=== PATIENT | female | born 1970 | race Caucasian/White ===

== ENCOUNTER 2019-08-23 14:29 | Emergency (ER) | payer OTHER ==
[2019-08-23 14:40] VITALS: PULSE 94; TEMP 98.2; BMI 41.0
[2019-08-23] MEDS ORDERED: MECLIZINE HCL 25 MG TABLET (FP) PO ONE (15:02)
[2019-08-23] MEDS ORDERED: ONDANSETRON *ODT* 4 MG TABLET SL ONE (15:02)
[2019-08-23] MEDS ORDERED: MECLIZINE HCL 25 MG TABLET (FP) ONE (15:10)
[2019-08-23] MEDS ORDERED: ONDANSETRON *ODT* 4 MG TABLET ONE (15:11)
--- NOTE | 2019-08-23 15:48 | PDOC ---
History of Present Illness - General Chief Complaint: Lightheaded Stated Complaint: vertigo Time Seen by Provider: 08/23/19 14:33 - History of Present Illness Initial Comments: 08/23/19 15:43 49yo female presents for eval of ringing in the L ear and vertiginous symptoms. States symptoms x 3 days. States she had a URI last week and then developed the vertiginous symptoms 3 days ago. States she was dx with vertigo 8 years ago in [place] and started on meclizine at that time. States she develops vertiginous symptoms q3m. Pt states she has been taking meclizine qam x 3 days without improvement. Pt denies sinus or facial pain. No f/c. No enamorado. C/o nausea and dizziness. States the room is spinning. Pt denies cp/sob. No abd pain. No n/v/ d. No dysuria. 08/23/19 15:53 Pmhx: vertigo, gerd all: nkda 08/23/19 15:54 Past History - Past Medical History Allergies/Adverse Reactions: Allergies Allergy/AdvReac Type Severity Reaction Status Date / Time No Known Allergies Allergy Verified 08/23/19 14:31 Home Medications: Ambulatory Orders Alprazolam [Xanax] 0.5 mg PO BID #10 tablet 06/18/15 Lisinopril/Hydrochlorothiazide [Lisinopril-Hctz 10-12.5 mg Tab] 1 each PO DAILY 08/23/19 Meclizine HCl 12.5 mg PO ASDIR PRN 08/23/19 Meclizine HCl 25 mg PO TID PRN #9 tablet 08/23/19 Ondansetron [Zofran *Odt*] 4 mg SL TID PRN #9 od.tablet 08/23/19 COPD: No GI Disorders: Yes (GERD) HTN: Yes Hypercholesterolemia: Yes Other medical history: vertigo - Surgical History Abdominal Surgery: (hernia) - Immunization History Immunization Up to Date: No - Psycho Social/Smoking Cessation Hx Smoking Status: No Smoking History: Current every day smoker Have you smoked in the past 12 months: Yes Number of Cigarettes Smoked Daily: 20 Information on smoking cessation initiated: Yes Hx Alcohol Use: No Drug/Substance Use Hx: No Review of Systems - Review of Systems Able to Perform ROS?: Yes Is the patient limited Occitan proficient: No Constitutional: No: Chills, Fever HEENTM: No: Blurred Vision, Double Vision, Nose Congestion, Throat Swelling Respiratory: No: Cough, Shortness of Breath Cardiac (ROS): Yes: Lightheadedness. No: Chest Pain ABD/GI: Yes: Nausea. No: Diarrhea, Vomiting, Abdominal cramping : No: Burning, Dysuria Musculoskeletal: No: Back Pain Integumentary: No: Bruising, Rash Neurological: Yes: Dizziness. No: Headache, Numbness, Paresthesia, Tingling, Weakness, Ataxia All Other Systems: Reviewed and Negative *Physical Exam - Vital Signs Last Vital Signs Temp Pulse Resp BP Pulse Ox 98.2 F 94 H 20 121/73 97 08/23/19 14:30 08/23/19 14:30 08/23/19 14:30 08/23/19 14:30 08/23/19 14:30 - Physical Exam General Appearance: Yes: Nourished, Appropriately Dressed, Apparent Distress, Other (appears uncomfortable, dizzy with change in position) HEENT: positive: EOMI, [place], Normal Voice, TMs Normal, Pharynx Normal Neck: positive: Supple Respiratory/Chest: positive: Lungs Clear, Normal Breath Sounds. negative: Respiratory Distress Cardiovascular: positive: Regular Rhythm, Regular Rate, S1, S2. negative: Edema Gastrointestinal/Abdominal: positive: Soft. negative: Guarding, Rebound, Tenderness Musculoskeletal: positive: Normal Inspection Extremity: positive: Normal Capillary Refill, Normal Inspection, Normal Range of Motion. negative: Swelling Integumentary: positive: Normal Color, Dry, Warm Neurologic: positive: assistant center director II-XII NML intact, Fully Oriented, Alert, Normal Mood/ Affect, Normal Response, Motor Strength 5/5 Heart Score/ECG Review - ECG Intrepretation Comment:: 08/23/19 16:26 sinus at 74, nl axis, nl interval, incomplete rbbb, no acute st/t wave findings ED Treatment Course - LABORATORY CBC & Chemistry Diagram: 08/23/19 16:24 08/23/19 16:24 - Medications Given in the ED: ED Medications Discontinued Medications Generic Name Dose Route Start Last Admin Trade Name Freq PRN Reason Stop Dose Admin Meclizine HCl 25 mg 08/23/19 15:02 08/23/19 15:12 Antivert - PO 08/23/19 15:03 25 mg ONCE ONE Administration Ondansetron HCl 4 mg 08/23/19 15:02 08/23/19 15:12 Zofran Odt - SL 08/23/19 15:03 4 mg ONCE ONE Administration Medical Decision Making - Medical Decision Making 08/23/19 15:57 a/p: 49yo female with 8 year hx of vertigo with dizziness x 3 days -will give zofran odt and meclizine -orthostatic vs neg (supine 132/81, sitting 142/86, standing 138/82) -neuro intact -has not seen ENT in 8 years since being in [place] -will need ENT eval, ringing in the ears, poss menieres disease -will monitor and reassess 08/23/19 16:13 pt vomiting and feeling more dizzy will send labs, ekg, head ct will give reglan, ivf hydration, tylenol iv 08/23/19 16:[address] without acute findings per IOC. pt updated state she is starting to feel better 08/23/19 17:16 pt feeling much better ambulatory with a steady gait no longer dizzy discussed labs and imaging with the family and the patient pt will need ent and neurology follow up stable for dc to home Discharge - Discharge Information Problems reviewed: Yes Clinical Impression/Diagnosis: Vertigo Condition: Stable Disposition: HOME - Admission No - Additional Discharge Information Prescriptions: Meclizine HCl 25 mg PO TID PRN #9 tablet PRN Reason: Vertigo Ondansetron [Zofran *Odt*] 4 mg SL TID PRN #9 od.tablet PRN Reason: Nausea - Follow up/Referral Referrals: Zain Campo MD [Staff Physician] - Reyes Silverman MD [Staff Physician] - - Patient Discharge Instructions Patient Printed Discharge Instructions: DI for Meniere's Disease, DI for Vertigo Additional Instructions: Please take all medications as prescribed. Please take the meclizine at the onset of the dizziness. Please take it every 8 hours as needed for dizziness, but do not take the meclizine when you are not feeling dizzy. Please put the zofran under your tongue when you are feeling nauseated. Please make an appointment to see the ENT and the neurologist this week. Please make an appointment to see your PMD. Please return to the ER with any further concerns or complaints. - Post Discharge Activity
[2019-08-23] MEDS ORDERED: SODIUM CHLORIDE 0.9% 1000 ML INFUS.BAG IV ONE (15:49)
[2019-08-23] MEDS ORDERED: METOCLOPRAMIDE HCL INJECTION 10 MG/2 ML VIAL IVPUSH ONE (15:49)
[2019-08-23] MEDS ORDERED: ACETAMINOPHEN 1000 MG/100 ML VIAL (NON FORMULARY) IVPB ONE (15:49)
[2019-08-23] MEDS ORDERED: ACETAMINOPHEN INJECTION 100 ML IVPB ONE (16:27)
[2019-08-23] MEDS ORDERED: METOCLOPRAMIDE HCL INJECTION 10 MG/2 ML VIAL ONE (16:28)
[2019-08-23 16:41] LABS: BASO % 0.9 % (0-2.0); EOS % 3.7 % (0-4.5); HEMATOCRIT 37.5 % (32.4-45.2); HEMOGLOBIN 12.1 GM/dl (10.7-15.3); MCH 24.2 pg (25.7-33.7); MCHC 32.2 g/dl (32.0-36.0); MEAN CELL VOLUME 75.1 fl (80-96); MEAN PLT VOLUME 8.7 fl (7.5-11.1); MONO % 8.4 % (3.8-10.2); PLATELET COUNT 445 K/MM3 (134-434); RDW 14.2 % (11.6-15.6); WHITE BLOOD COUNT 10.8 K/mm3 (4.0-10.8)
[2019-08-23 16:48] LABS: EPITHELIAL CELLS RARE /hpf
[2019-08-23 16:56] LABS: ALBUMIN 3.9 g/dl (3.4-5.0); BILIRUBIN,TOTAL 0.7 mg/dl (0.2-1); CALCIUM 9.2 mg/dl (8.5-10); CREATININE 0.7 mg/dl (0.55-1.3); POTASSIUM 3.7 mmol/L (3.5-5.1); TOT PROT 7.1 g/dl (6.4-8.2)
[2019-08-23 17:38] VITALS: BP 132/81
--- NOTE | 2019-08-24 14:42 | EKG ---
Test Reason : Blood Pressure : / mmHG Vent. Rate : 074 BPM Atrial Rate : 074 BPM P-R Int : 188 ms QRS Dur : 096 ms QT Int : 418 ms P-R-T Axes : 027 023 025 degrees QTc Int : 463 ms NORMAL SINUS RHYTHM LEFT ATRIAL ENLARGEMENT INCOMPLETE RIGHT BUNDLE BRANCH BLOCK CANNOT RULE OUT INFERIOR INFARCT ABNORMAL ECG Confirmed by MD BERTA, TU ([id number]) on 08/24/2019 2:42:41 PM Referred By: CAROLINE KUMAR Confirmed By:TU HAMPTON MD
== END 2019-08-23 17:38 | disposition home or self-care (01) ==
LOC: FER 14:29
PROC: 3E033NZ Introduction of Analgesics, Hypnotics, Sedatives into Peripheral Vein, Percutaneous Approach (ICD-10-PCS; principal; 2019-08-23)
PROC: 3E033GC Introduction of Other Therapeutic Substance into Peripheral Vein, Percutaneous Approach (ICD-10-PCS; 2019-08-23)
DX: R42 Dizziness and giddiness (principal); K21.9 Gastro-esophageal reflux disease without esophagitis; E78.00 Pure hypercholesterolemia, unspecified; I10 Essential (primary) hypertension; F17.210 Nicotine dependence, cigarettes, uncomplicated
CPT/HCPCS: 36415; 70450-TC; 80053; 81003; 81015; 82550; 84484; 84703; 85025; 93005; 99284-25; J0131; J7030; Q0162

== ENCOUNTER 2020-01-22 12:30 | Emergency (ER) | payer OTHER ==
[2020-01-22 12:42] VITALS: TEMP 98.6; BMI 36.3
[2020-01-22] MEDS ORDERED: ASPIRIN 81 MG CHEWABLE TABLETS PO ONE (12:58)
[2020-01-22] MEDS ORDERED: SODIUM CHLORIDE 1,000 ML IV ONE (12:58)
[2020-01-22] MEDS ORDERED: ASPIRIN 81 MG CHEWABLE TABLETS ONE (13:03)
--- NOTE | 2020-01-22 13:17 | PDOC ---
History of Present Illness - General Chief Complaint: Chest Pain Stated Complaint: CHEST TIGHTNESS, NUMBNESS TO BOTH LEGS Time Seen by Provider: 01/22/20 12:33 History Source: Patient Exam Limitations: No Limitations - History of Present Illness Initial Comments: 01/22/20 13:12 49yF hx of hx of dm, htn, hl, hypothyroidism presenst with complaint of chest pain. Pt states she has had intermittent episodes of chest pressure lasting a few seconds, when she wakes up, sometimes during the day. Patient states she feels it approximately twice a day, she endorses some shortness of breath, sometimes she feels numbness and tingling down her left and right arms. Patient states she has not had similar symptoms prior. She denies any associated nausea or vomiting, Diaphoresis, abdominal pain, back pain, lower extremity swelling, Dysuria, diarrhea, blood per rectum, melena. Patient notes that the pain occurs both at rest as well as with exertion. Patient states that her last episode of chest discomfort was last night. Patient states that she started taking aspirin in the last 4 days. Patient last saw a manager rn 6 years ago for a stress test. Patient states she has felt like she was under a lot of stress the last month or so. Social history, chronic smoker, Denies any recreational drug use Family history mother had CAD Past History - Medical History Allergies/Adverse Reactions: Allergies Allergy/AdvReac Type Severity Reaction Status Date / Time No Known Allergies Allergy Verified 08/23/19 14:31 Home Medications: Ambulatory Orders Lisinopril/Hydrochlorothiazide [Lisinopril-Hctz 10-12.5 mg Tab] 1 each PO DAILY 08/23/19 Meclizine HCl 12.5 mg PO ASDIR PRN 08/23/19 Aspirin 81 mg PO DAILY 01/22/20 Topiramate [Topamax] 50 mg PO BID 01/22/20 metFORMIN HCL [Metformin HCl] 500 mg PO DAILY 01/22/20 COPD: No GI Disorders: Yes (GERD) HTN: Yes Hypercholesterolemia: Yes Other medical history: MIGRAINES - Surgical History Abdominal Surgery: (hernia) - Immunization History Immunization Up to Date: No - Psycho-Social/Smoking History Smoking Status: No Smoking History: Current every day smoker Have you smoked in the past 12 months: Yes Number of Cigarettes Smoked Daily: 20 Information on smoking cessation initiated: Yes 'Breaking Loose' booklet given: 08/23/19 - Substance Abuse Hx (Audit-C & DAST Scrn) How often the patient has a drink containing alcohol: Never Score: In Men: 4 or > Positive; In Women: 3 or > Positive: 0 Screen Result (Pos requires Nsg. Audit-10AR): Negative In the last yr the pt used illegal drug/Rx for NonMed reason: No Score: Yes response is considered Positive: 0 Screen Result (Positive result requires Nsg. DAST-10): Negative Review of Systems - Review of Systems Able to Perform ROS?: Yes Comments:: 01/22/20 13:15 Constitutional - no reported Fever, Chills, HEENT: no reported vision changes, sore throat Respiratory: +sob no reported cough, sob, hemoptysis Cardiac: + chest pain, no reported palpitations, light headedness, leg swelling Abd/GI: no reported abd pain, nausea, vomiting, blood per rectum, melena, diarrhea : no reported dysuria, frequency, discharge Musculskelatal - no reported back pain, joint swelling skin - no reported bruising, erythema, rash neurological: no reported headache, numbness, focal weakness, tingling, ataxia, hematologic: no reported easy bruising, easy bleeding *Physical Exam - Vital Signs Last Vital Signs Temp Pulse Resp BP Pulse Ox 98.6 F 86 18 100/55 L 100 01/22/20 12:30 01/22/20 12:30 01/22/20 12:30 01/22/20 12:30 01/22/20 12:30 - Physical Exam 01/22/20 13:16 GENERAL: The patient is awake, alert, and fully oriented, Nontoxic - in no acute distress. HEAD: Normocephalic, atraumatic. EYES: extraocular movements intact, sclera anicteric, conjunctiva clear. ENT: Normal voice, Moist mucous membranes. NECK: Normal range of motion, supple LUNGS: Breath sounds equal, clear to auscultation bilaterally. No wheezes, no rhonchi, no rales. HEART: Regular rate and rhythm, normal S1 and S2 without murmur, rub or gallop. ABDOMEN: Soft, nontender, No guarding, no rebound. No CVA tenderness EXTREMITIES: Normal range of motion, no edema. NEUROLOGICAL: No facial assymetry, Normal speech, PSYCH: Normal mood, normal affect. SKIN: Warm, Dry, normal turgor, Heart Score/ECG Review - History History: Slightly suspicious - Electrocardiogram EKG: Normal - Age Age: 45-65 - Risk Factors Risk Factors Heart Score: Yes Hx Hypercholesterolemia, Yes Hx Hypertension, Yes Smoking History Based on the list above the patient has:: >/=3 risk factors or Hx atherosclerotic disease - Troponin Troponin: </= normal limit - Score Heart Score - Total: 3 - ECG Impressions Comment:: 01/22/20 13:16 Twelve-lead EKG was performed and reviewed by me. There is normal sinus rhythm with a normal rate. rat of 79 The axis is normal. The intervals are normal. There is normal R wave progression There are no ST or T wave abnormalities. Impression: Normal twelve-lead EKG ED Treatment Course - LABORATORY CBC & Chemistry Diagram: 01/22/20 13:05 01/22/20 13:05 - ADDITIONAL ORDERS Additional order review: Laboratory Results 01/22/20 01/22/20 01/22/20 13:05 13:05 13:01 Sodium 133 L Potassium 4.1 Chloride 104 Carbon Dioxide 23 Anion Gap 6 L BUN 20.0 H Creatinine 0.9 Est GFR (CKD-EPI)AfAm 87.63 Est GFR (CKD-EPI)NonAf 75.61 Random Glucose 88 Calcium 8.6 Total Bilirubin 0.9 AST 14 L ALT 18 Alkaline Phosphatase 62 Creatine Kinase 107 Troponin I < 0.03 Total Protein 7.2 Albumin 4.0 Serum , Qual Negative 01/22/20 13:05 RBC 4.98 MCV 72.4 L MCHC 31.9 L RDW 16.6 H MPV 9.4 Neutrophils % 51.6 Lymphocytes % 35.6 D Monocytes % 8.7 Eosinophils % 3.1 Basophils % 1.0 - Medications Given in the ED: ED Medications Discontinued Medications Generic Name Dose Route Start Last Admin Trade Name Freq PRN Reason Stop Dose Admin Aspirin 162 mg 01/22/20 12:58 01/22/20 13:05 Asa - PO 01/22/20 12:59 162 mg ONCE ONE Administration Sodium Chloride 1,000 mls @ 1,000 mls/hr 01/22/20 12:58 01/22/20 13:00 Normal Saline - IV 01/22/20 13:57 1,000 mls/hr .Q1H ONE Administration Medical Decision Making - Medical Decision Making 01/22/20 13:18 ddx - acs, consider possible anxiety currently pain free will ck ekg, will obtain blood work including troponin (last episode of cp last night) asa 01/22/20 14:45 pts blood work reviewd trop negative pt feeling improved anticipate dc with pmd and cards fu return precautions were discussed Discharge - Discharge Information Problems reviewed: Yes Clinical Impression/Diagnosis: Chest pain Qualifiers: Chest pain type: unspecified Qualified Code(s): R07.9 - Chest pain, unspecified Condition: Stable Disposition: HOME - Follow up/Referral Referrals: Brody Moyer MD [Staff Physician] - Kiet Morse MD [Staff Physician] - Rudy Alfred MD [Staff Physician] - Perez Barron MD [Staff Physician] - - Patient Discharge Instructions Patient Printed Discharge Instructions: DI for Atypical Chest Pain Additional Instructions: Return to the emergency department immediately with ANY new, persistent or worsening symptoms Including any chest pain, shortness of breath or any other concerns You MUST call and follow up with your doctor and a manager rn within 3 days for further evaluation of your symptoms. Results were discussed with you. Please make sure your doctor reviews the results of your emergency evaluation. Your Emergency Department visit is not complete without a follow up with your doctor. Print Language: GUATEMALAN - Post Discharge Activity
[2020-01-22 13:27] LABS: BILIRUBIN,TOTAL 0.9 mg/dl (0.2-1); CALCIUM 8.6 mg/dl (8.5-10); CREATININE 0.9 mg/dl (0.55-1.3); POTASSIUM 4.1 mmol/L (3.5-5.1); TOT PROT 7.2 g/dl (6.4-8.2)
--- NOTE | 2020-01-22 14:08 | EKG ---
Test Reason : Blood Pressure : / mmHG Vent. Rate : 079 BPM Atrial Rate : 079 BPM P-R Int : 168 ms QRS Dur : 090 ms QT Int : 376 ms P-R-T Axes : 052 032 047 degrees QTc Int : 431 ms NORMAL SINUS RHYTHM NORMAL ECG WHEN COMPARED WITH ECG OF 23-AUG-2019 16:00, NO SIGNIFICANT CHANGE WAS FOUND Confirmed by LIVE MUNIZ MD ([id number]) on 01/22/2020 2:07:26 PM Referred By: DR FOSTER Confirmed By:LIVE MUNIZ MD
[2020-01-22 14:39] LABS: EOS % 3.1 % (0-4.5); HEMOGLOBIN 11.5 GM/dL (10.7-15.3); LYMPH % 35.6 % (8-40); MCH 23.1 pg (25.7-33.7); MCHC 31.9 g/dl (32.0-36.0); MEAN CELL VOLUME 72.4 fl (80-96); MEAN PLT VOLUME 9.4 fl (7.5-11.1); MONO % 8.7 % (3.8-10.2); NEUT % 51.6 % (42.8-82.8); PLATELET COUNT 365 K/MM3 (134-434); RBC 4.98 M/mm3 (3.60-5.2); RDW 16.6 % (11.6-15.6); WHITE BLOOD COUNT 8.6 K/mm3 (4.0-10.0)
[2020-01-22 15:21] VITALS: BP 111/68; PULSE 75
== END 2020-01-22 15:00 | disposition home or self-care (01) ==
LOC: FER 12:30
PROC: 3E0337Z Introduction of Electrolytic and Water Balance Substance into Peripheral Vein, Percutaneous Approach (ICD-10-PCS; principal; 2020-01-22)
DX: R07.9 Chest pain, unspecified (principal)
CPT/HCPCS: 36415; 80053; 82550; 84484; 84703; 85025; 93005; 99284-25

== ENCOUNTER 2021-02-09 15:48 | Emergency (ER) | payer OTHER ==
[2021-02-09 16:09] VITALS: BP 135/77; PULSE 110; TEMP 99.2; BMI 34.3
== END 2021-02-09 18:04 | disposition home or self-care (01) ==
LOC: FER 15:48
DX: S20.219A Contusion of unspecified front wall of thorax, initial encounter (principal)
CPT/HCPCS: 72050-TC-FY; 99283-25

== ENCOUNTER 2022-05-02 03:25 | Inpatient (IN) | payer OTHER ==
[2022-05-02] MEDS ORDERED: ACETAMINOPHEN INJECTION 100 ML IVPB ONE (05:05)
[2022-05-02] MEDS ORDERED: SODIUM CHLORIDE 1,000 ML IV STA (05:05)
[2022-05-02] MEDS ORDERED: ACETAMINOPHEN 1000 MG/100 ML BAG IVPB ONE (05:05)
[2022-05-02 05:43] LABS: BASO % 1.1 % (0-2.0); EOS % 1.3 % (0-4.5); HEMATOCRIT 34.6 % (32.4-45.2); HEMOGLOBIN 10.7 GM/dL (10.7-15.3); LYMPH % 17.6 % (8-40); MCHC 30.9 g/dl (32.0-36.0); PLATELET COUNT 408 10^3/uL (134-434); RBC 5.49 M/mm3 (3.60-5.2); RDW 19.9 % (11.6-15.6); WHITE BLOOD COUNT 11.9 K/mm3 (4.0-10.0)
[2022-05-02 05:56] LABS: MCH 19.4 pg (25.7-33.7)
[2022-05-02 06:01] LABS: EPI CELLS >36 /uL (0-25.1); HYALINE CASTS 4 /uL (0-3.1); PH,URINE 5.5 (5.0-8.0); URINE APPEARANCE CLOUDY; URINE BACTERIA 6 /uL (0-1359); URINE BILIRUBIN NEGATIVE (NEGATIVE); URINE COLOR RED; URINE GLUCOSE (UA) NEGATIVE (NEGATIVE); URINE KETONE NEGATIVE (NEGATIVE); URINE LEUK ESTERASE 2+ (NEGATIVE); URINE NITRITE NEGATIVE (NEGATIVE); URINE PROTEIN 2+ (NEGATIVE); URINE UROBILINOGEN 0.2 mg/dL (0.2-1.0); URINE WBC 141 /uL (0-25.8)
[2022-05-02 06:03] LABS: CHLORIDE 100 mmol/L (98-107); SODIUM 137 mmol/L (136-145)
[2022-05-02 06:05] LABS: CALCIUM 9.6 mg/dL (8.5-10.1)
[2022-05-02 06:06] LABS: ALBUMIN 3.8 g/dl (3.4-5.0); ANION GAP 12 MMOL/L (8-16); BLOOD UREA NITROGEN 16.2 mg/dL (7-18); CO2 25 mmol/L (21-32); GLUCOSE,RANDOM 114 mg/dL (74-106); LIPASE 201 U/L (73-393); MAGNESIUM 1.8 mg/dL (1.8-2.4)
[2022-05-02 06:08] LABS: CREATININE 1.4 mg/dL (0.55-1.3); SGOT/AST 19 U/L (15-37)
[2022-05-02 06:09] LABS: SGPT/ALT 24 U/L (13-61)
[2022-05-02 06:10] LABS: BILIRUBIN,TOTAL 0.5 mg/dL (0.2-1); TOT PROT 7.6 g/dl (6.4-8.2)
[2022-05-02 06:11] LABS: ALK PHOS 82 U/L (45-117)
[2022-05-02 07:13] LABS: ANISOCYTOSIS 3+; MACROCYTOSIS 0; ROULEAU 1+; TEAR DROP CELLS 0
[2022-05-02] MEDS ORDERED: CEFTRIAXONE 1 GM in DEXTROSE 5%-WATER - 100 ML IVPB ONE (07:44)
[2022-05-02] MEDS ORDERED: CEFTRIAXONE 1 GM/50 ML BAG ONE (08:15)
[2022-05-02 08:33] LABS: URINE RBC 19301 /uL (0-23.9)
[2022-05-02 10:35] LABS: CHOLESTEROL 107 mg/dL (50-200); TRIGLYCERIDES 258 mg/dL (0-150)
[2022-05-02 10:36] LABS: LDL CHOLESTEROL (ONLY SJRH) 52 mg/dL (5-100)
[2022-05-02 10:38] LABS: HDL CHOLESTEROL 30 mg/dL (40-60)
[2022-05-02] MEDS ORDERED: ACETAMINOPHEN 325 MG TABLET (FP) ONE (11:35)
[2022-05-02] MEDS ORDERED: HEPARIN NA (PORCINE) 5,000 UNITS/ML 1ML VIAL ONE (11:36)
[2022-05-02] MEDS: INSULIN SLIDING SCALE (NOVOLOG) 1 VIAL SQ SCH ×3 (11:55→21:40)
[2022-05-02] MEDS: SODIUM CHLORIDE 1,000 ML IV SCH ×2 (11:55→22:04)
[2022-05-02] MEDS: ACETAMINOPHEN 325 MG TABLET (FP) PO PRN ×2 (12:05→21:17)
[2022-05-02 13:04] VITALS: BMI 37.1
[2022-05-02] MEDS: HEPARIN NA (PORCINE) 5,000 UNITS/ML 1ML VIAL SQ SCH ×2 (15:47→21:17)
[2022-05-02] MEDS ORDERED: INSULIN (NOVOLOG) ASPART 100 UNITS/ML 10ML VIAL ONE (20:42)
[2022-05-02] MEDS: PRAMIPEXOLE DIHYDROCHLORIDE 0.5 MG TABLET PO SCH (21:39)
[2022-05-02] MEDS: DIVALPROEX NA *ER* EXTEND REL 500 MG TABLET.SA (FP) PO SCH (21:39)
[2022-05-03] MEDS: INSULIN SLIDING SCALE (NOVOLOG) 1 VIAL SQ SCH ×4 (06:24→21:24)
[2022-05-03] MEDS: HEPARIN NA (PORCINE) 5,000 UNITS/ML 1ML VIAL SQ SCH ×3 (06:24→21:23)
[2022-05-03] MEDS: ACETAMINOPHEN 325 MG TABLET (FP) PO PRN (06:32)
[2022-05-03] MEDS: SODIUM CHLORIDE 1,000 ML IV SCH (09:25)
[2022-05-03] MEDS: GABAPENTIN 300 MG CAPSULE PO SCH (09:26)
[2022-05-03] MEDS: CEFTRIAXONE 1 GM in DEXTROSE 5%-WATER - 50 ML IVPB SCH (09:26)
[2022-05-03 10:10] LABS: EOS % 2.9 % (0-4.5); HEMATOCRIT 32.4 % (32.4-45.2); HEMOGLOBIN 9.9 GM/dL (10.7-15.3); LYMPH % 31.1 % (8-40); MCHC 30.7 g/dl (32.0-36.0); MEAN CELL VOLUME 63.7 fl (80-96); MEAN PLT VOLUME 9.1 fl (7.5-11.1); PLATELET COUNT 401 10^3/uL (134-434); RBC 5.08 M/mm3 (3.60-5.2); WHITE BLOOD COUNT 6.9 K/mm3 (4.0-10.0)
[2022-05-03 10:34] LABS: MCH 19.6 pg (25.7-33.7)
[2022-05-03 10:36] VITALS: RESP 18
[2022-05-03 10:42] LABS: CALCIUM 9.3 mg/dL (8.5-10.1); MAGNESIUM 2.1 mg/dL (1.8-2.4)
[2022-05-03 10:44] LABS: BLOOD UREA NITROGEN 13.2 mg/dL (7-18)
[2022-05-03 10:47] LABS: CREATININE 1.1 mg/dL (0.55-1.3); PHOSPHOROUS 3.1 mg/dL (2.5-4.9)
[2022-05-03] MEDS: DIVALPROEX NA *ER* EXTEND REL 500 MG TABLET.SA (FP) PO SCH (21:23)
[2022-05-03] MEDS: PRAMIPEXOLE DIHYDROCHLORIDE 0.5 MG TABLET PO SCH (21:23)
[2022-05-03] MEDS ORDERED: ROSUVASTATIN CA 20 MG TABLET PO SCH (22:00)
[2022-05-04] MEDS: HEPARIN NA (PORCINE) 5,000 UNITS/ML 1ML VIAL SQ SCH ×2 (05:58→14:05)
[2022-05-04] MEDS: ACETAMINOPHEN 325 MG TABLET (FP) PO PRN (10:01)
[2022-05-04] MEDS: CEFTRIAXONE 1 GM in DEXTROSE 5%-WATER - 50 ML IVPB SCH (10:01)
[2022-05-04] MEDS: GABAPENTIN 300 MG CAPSULE PO SCH (10:01)
[2022-05-04] MEDS: INSULIN SLIDING SCALE (NOVOLOG) 1 VIAL SQ SCH (11:27)
[2022-05-04 11:43] LABS: HEMATOCRIT 29.9 % (32.4-45.2); HEMOGLOBIN 9.7 GM/dL (10.7-15.3); MCH 20.6 pg (25.7-33.7); MCHC 32.4 g/dl (32.0-36.0); MEAN CELL VOLUME 63.6 fl (80-96); PLATELET COUNT 406 10^3/uL (134-434); RDW 19.7 % (11.6-15.6); WHITE BLOOD COUNT 8.1 K/mm3 (4.0-10.0)
[2022-05-04 11:45] VITALS: BP 125/66; PULSE 89; TEMP 98.2
[2022-05-04 12:26] LABS: ALBUMIN 3.3 g/dl (3.4-5.0); CALCIUM 9.2 mg/dL (8.5-10.1); MAGNESIUM 2.2 mg/dL (1.8-2.4)
[2022-05-04 12:30] LABS: BLOOD UREA NITROGEN 15.5 mg/dL (7-18)
[2022-05-04 12:32] LABS: BILIRUBIN,TOTAL 0.5 mg/dL (0.2-1); CREATININE 0.9 mg/dL (0.55-1.3)
== END 2022-05-04 15:00 | disposition home or self-care (01) | DRG 463 ==
LOC: JER 03:25 → JERBED 07:59 → J6S 12:10 → OBSVTOIN 05-04 09:58
PROVIDERS: ADMIT Internal Medicine; ATTEND Internal Medicine
DX: N13.6 Pyonephrosis (principal); I10 Essential (primary) hypertension; E11.9 Type 2 diabetes mellitus without complications; K21.9 Gastro-esophageal reflux disease without esophagitis; E78.5 Hyperlipidemia, unspecified; K76.0 Fatty (change of) liver, not elsewhere classified; N83.201 Unspecified ovarian cyst, right side; N17.9 Acute kidney failure, unspecified; E66.9 Obesity, unspecified; G62.9 Polyneuropathy, unspecified; Z68.37 Body mass index [BMI] 37.0-37.9, adult; D25.9 Leiomyoma of uterus, unspecified; Z79.84 Long term (current) use of oral hypoglycemic drugs
CPT/HCPCS: 36415; 74177-TC; 76830-TC; 80048; 80053; 80061; 81003; 82378; 82962; 83036; 83690; 83735; 84100; 84484; 84703; 85025; 85027; 86301; 86304; 87086; 93005; 93010; 99285-25; C9803-CS; G0378; J1644; Q9967; U0003; U0005

== ENCOUNTER 2022-10-23 11:28 | Emergency (ER) | payer OTHER ==
[2022-10-23 11:42] VITALS: BP 135/59; PULSE 95; RESP 18; TEMP 98.7; BMI 78.0
[2022-10-23] MEDS ORDERED: ACETAMINOPHEN 1000 MG/100 ML BAG IVPB ONE (11:59)
[2022-10-23] MEDS ORDERED: SODIUM CHLORIDE 0.9% 500 ML INFUS.BAG IV ONE (11:59)
[2022-10-23] MEDS ORDERED: ACETAMINOPHEN INJECTION 100 ML IVPB ONE (12:13)
[2022-10-23 12:25] LABS: EOS % 3.3 % (0-4.5); HEMATOCRIT 32.4 % (32.4-45.2); HEMOGLOBIN 10.3 GM/dL (10.7-15.3); LYMPH % 33.7 % (8-40); MCHC 31.7 g/dl (32.0-36.0); MEAN CELL VOLUME 61.4 fl (80-96); MEAN PLT VOLUME 8.6 fl (7.5-11.1); PH,URINE 5.5 (5.0-8.0); PLATELET COUNT 431 10^3/uL (134-434); RBC 5.27 M/mm3 (3.60-5.2); RDW 19.8 % (11.6-15.6); URINE APPEARANCE CLEAR; URINE BILIRUBIN NEGATIVE (NEGATIVE); URINE COLOR YELLOW; URINE GLUCOSE (UA) NEGATIVE (NEGATIVE); URINE KETONE NEGATIVE (NEGATIVE); URINE LEUK ESTERASE NEGATIVE (NEGATIVE); URINE NITRITE NEGATIVE (NEGATIVE); URINE PROTEIN NEGATIVE (NEGATIVE); URINE UROBILINOGEN 0.2 mg/dL (0.2-1.0); WHITE BLOOD COUNT 6.9 K/mm3 (4.0-10.0)
[2022-10-23 12:26] LABS: MCH 19.4 pg (25.7-33.7)
[2022-10-23 12:35] LABS: INR 0.96 (0.83-1.09); PROTHROMBIN TIME (PATIENT) 11.1 SEC (9.7-13.0)
[2022-10-23 12:38] LABS: ACTIVATED PTT 34.6 SECONDS (25.2-36.5)
[2022-10-23 12:53] LABS: ALBUMIN 3.7 g/dl (3.4-5.0); CALCIUM 9.8 mg/dL (8.5-10.1)
[2022-10-23 12:54] LABS: BLOOD UREA NITROGEN 17.7 mg/dL (7-18)
[2022-10-23 12:57] LABS: CREATININE 0.8 mg/dL (0.55-1.3)
[2022-10-23 12:58] LABS: BILIRUBIN,TOTAL 0.7 mg/dL (0.2-1); TOT PROT 7.6 g/dl (6.4-8.2)
[2022-10-23 13:11] LABS: ANISOCYTOSIS 3+; MACROCYTOSIS 0
[2022-10-23] MEDS ORDERED: KETOROLAC TROMETHAMINE 15 MG/ML VIAL IVPUSH ONE (15:33)
[2022-10-23] MEDS ORDERED: KETOROLAC TROMETHAMINE 15 MG/ML VIAL ONE (15:48)
== END 2022-10-23 16:14 | disposition home or self-care (01) ==
LOC: JERFT 11:28
PROC: 3E033NZ Introduction of Analgesics, Hypnotics, Sedatives into Peripheral Vein, Percutaneous Approach (ICD-10-PCS; principal; 2022-10-23)
PROC: 3E0333Z Introduction of Anti-inflammatory into Peripheral Vein, Percutaneous Approach (ICD-10-PCS; 2022-10-23)
DX: R35.0 Frequency of micturition (principal); R10.32 Left lower quadrant pain; R10.12 Left upper quadrant pain
CPT/HCPCS: 36415; 74177-TC; 80053; 81003; 83735; 85025; 85610; 85730; 87086; 99285-25; Q9967